=== PATIENT | female | born 1935 | race Asian ===

== ENCOUNTER 2016-05-17 05:51 | Outpatient (RCR) | payer MEDICARE ==
[~2016-05-17] VITALS: Ht 149.9 cm; Wt 45.4 kg
[2016-05-20] MEDS ORDERED: NS 550ML IV ONE ×2 (05:52→07:00)
[2016-05-20] MEDS ORDERED: Ketorolac 30mg Inj ONE ×2 (05:52→07:00)
[2016-05-20] MEDS ORDERED: Methohexital Sodium Syr 100mg/10ml IVP ONE ×2 (05:52→07:00)
[2016-05-20] MEDS ORDERED: Succinylcholine 20mg/ml 10ml vial ONE ×2 (05:52→07:00)
== END 2016-05-28 | disposition home or self-care (01) ==
LOC: ECT 05:51
DX: F33.2 Major depressive disorder, recurrent severe without psychotic features (principal)
CPT/HCPCS: 90870; J0330; J1885; J7040

== ENCOUNTER 2016-06-07 07:36 | Outpatient (RCR) | payer MEDICARE ==
[~2016-06-07] VITALS: Ht 149.9 cm; Wt 100.0 kg
[2016-06-07] MEDS ORDERED: Methohexital Sodium Syr 100mg/10ml IVP ONE (07:37)
[2016-06-07] MEDS ORDERED: Succinylcholine 20mg/ml 10ml vial ONE (07:37)
[2016-06-07] MEDS ORDERED: NS 550ML IV ONE (07:37)
[2016-06-07] MEDS ORDERED: Ketorolac 30mg Inj ONE (07:37)
== END 2016-06-25 | disposition home or self-care (01) ==
LOC: ECT 07:36
DX: F33.2 Major depressive disorder, recurrent severe without psychotic features (principal); Z88.0 Allergy status to penicillin; Z88.2 Allergy status to sulfonamides
CPT/HCPCS: 90870; J0330; J1885; J7040

== ENCOUNTER 2016-06-28 07:38 | Outpatient (RCR) | payer MEDICARE ==
[~2016-06-28] VITALS: Ht 30.5 cm; Wt 0.5 kg
[2016-06-28] MEDS ORDERED: Methohexital Sodium Syr 100mg/10ml IVP ONE ×2 (07:39)
[2016-06-28] MEDS ORDERED: Succinylcholine 20mg/ml 10ml vial ONE ×2 (07:39)
[2016-06-28] MEDS ORDERED: Ketorolac 60mg Inj ONE ×2 (07:39)
[2016-06-28] MEDS ORDERED: NS 550ML IV ONE ×2 (07:39)
== END 2016-07-26 | disposition home or self-care (01) ==
LOC: ECT 07:38
DX: F33.2 Major depressive disorder, recurrent severe without psychotic features (principal); Z88.0 Allergy status to penicillin; Z88.2 Allergy status to sulfonamides
CPT/HCPCS: 90870; J0330; J7040

== ENCOUNTER 2016-08-09 06:15 | Outpatient (RCR) | payer MEDICARE ==
[~2016-08-09] VITALS: Ht 149.9 cm; Wt 100.0 kg
[2016-08-09] MEDS ORDERED: Succinylcholine 20mg/ml 10ml vial ONE (06:16)
[2016-08-09] MEDS ORDERED: Methohexital Sodium Syr 100mg/10ml IVP ONE (06:16)
[2016-08-09] MEDS ORDERED: NS 550ML IV ONE (06:16)
[2016-08-09] MEDS ORDERED: Ketorolac 30mg Inj ONE (06:16)
== END 2016-08-25 | disposition home or self-care (01) ==
LOC: ECT 06:15
DX: F33.2 Major depressive disorder, recurrent severe without psychotic features (principal); Z88.0 Allergy status to penicillin; Z88.2 Allergy status to sulfonamides
CPT/HCPCS: 90870; J0330; J1885; J7040

== ENCOUNTER 2016-08-30 06:28 | Outpatient (RCR) | payer MEDICARE ==
[~2016-08-30] VITALS: Ht 149.9 cm; Wt 100.0 kg
[2016-08-30] MEDS ORDERED: NS 550ML IV ONE (06:29)
[2016-08-30] MEDS ORDERED: Ketorolac 30mg Inj ONE (06:29)
[2016-08-30] MEDS ORDERED: Succinylcholine 20mg/ml 10ml vial ONE (06:29)
[2016-08-30] MEDS ORDERED: Methohexital Sodium Syr 100mg/10ml IVP ONE (06:29)
== END 2016-09-25 | disposition home or self-care (01) ==
LOC: ECT 06:28
DX: F33.2 Major depressive disorder, recurrent severe without psychotic features (principal)
CPT/HCPCS: 90870; J0330; J1885; J7040

== ENCOUNTER 2016-10-02 08:41 | Outpatient (RCR) | payer MEDICARE ==
[~2016-10-02] VITALS: Ht 149.9 cm; Wt 100.0 kg
[2016-10-04] MEDS ORDERED: Succinylcholine 20mg/ml 10ml vial ONE (07:00)
[2016-10-04] MEDS ORDERED: NS 550ML IV ONE (07:00)
[2016-10-04] MEDS ORDERED: Ketorolac 30mg Inj ONE (07:00)
[2016-10-04] MEDS ORDERED: Methohexital Sodium Syr 100mg/10ml IVP ONE (07:00)
[2016-10-04] MEDS ORDERED: Atropine Sulfate 0.4mg/ml inj IVP PRN (09:23)
== END 2016-10-25 | disposition home or self-care (01) ==
LOC: ECT 08:41
DX: F33.2 Major depressive disorder, recurrent severe without psychotic features (principal)
CPT/HCPCS: 90870; J0330; J1885; J7040

== ENCOUNTER 2016-11-01 05:02 | Outpatient (RCR) | payer MEDICARE ==
[~2016-11-01] VITALS: Ht 149.9 cm; Wt 45.4 kg
[2016-11-01] MEDS ORDERED: Methohexital Sodium Syr 100mg/10ml IVP ONE (05:03)
[2016-11-01] MEDS ORDERED: NS 550ML IV ONE (05:03)
[2016-11-01] MEDS ORDERED: Succinylcholine 20mg/ml 10ml vial ONE (05:03)
[2016-11-01] MEDS ORDERED: Ketorolac 30mg Inj ONE (05:03)
== END 2016-11-25 | disposition home or self-care (01) ==
LOC: ECT 05:02
DX: F33.2 Major depressive disorder, recurrent severe without psychotic features (principal)
CPT/HCPCS: 90870; J0330; J1885; J7040

== ENCOUNTER 2016-11-27 06:07 | Outpatient (RCR) | payer MEDICARE ==
[~2016-11-27] VITALS: Ht 149.9 cm; Wt 100.0 kg
[2016-11-27] MEDS ORDERED: Methohexital Sodium Syr 100mg/10ml IVP ONE ×2 (06:08)
[2016-11-27] MEDS ORDERED: Ketorolac 60mg Inj ONE (06:08)
[2016-11-27] MEDS ORDERED: Succinylcholine 20mg/ml 10ml vial ONE ×2 (06:08)
[2016-11-27] MEDS ORDERED: Ketorolac 30mg Inj ONE (06:08)
[2016-11-27] MEDS ORDERED: NS 550ML IV ONE ×2 (06:08)
== END 2016-12-26 | disposition home or self-care (01) ==
LOC: ECT 06:07
DX: F33.2 Major depressive disorder, recurrent severe without psychotic features (principal)
CPT/HCPCS: 90870; J0330; J1885; J7040

== ENCOUNTER 2017-01-08 11:36 | Outpatient (RCR) | payer MEDICARE ==
[~2017-01-08] VITALS: Ht 33 cm; Wt 0.5 kg
[2017-01-08] MEDS ORDERED: Ketorolac 30mg Inj ONE (11:37)
[2017-01-08] MEDS ORDERED: Methohexital Sodium Syr 100mg/10ml IVP ONE (11:37)
[2017-01-08] MEDS ORDERED: NS 500ML IV ONE (11:37)
[2017-01-08] MEDS ORDERED: Succinylcholine 20mg/ml 10ml vial ONE (11:37)
[2017-01-08] MEDS ORDERED: Sodium Chloride 500ML 500 ML IV ONE (11:47)
== END 2017-01-25 | disposition home or self-care (01) ==
LOC: ECT 11:36
DX: F33.2 Major depressive disorder, recurrent severe without psychotic features (principal)
CPT/HCPCS: 90870; J0330; J1885; J7040

== ENCOUNTER 2017-01-29 06:21 | Outpatient (RCR) | payer MEDICARE ==
[~2017-01-29] VITALS: Ht 149.9 cm; Wt 100.0 kg
[2017-01-29] MEDS ORDERED: Succinylcholine 20mg/ml 10ml vial ONE (06:22)
[2017-01-29] MEDS ORDERED: Ketorolac 30mg Inj ONE (06:22)
[2017-01-29] MEDS ORDERED: Methohexital Sodium Syr 100mg/10ml IVP ONE (06:22)
[2017-01-29] MEDS ORDERED: NS 500ML IV ONE (06:22)
[2017-01-29] MEDS ORDERED: Atropine Sulfate 0.4mg/ml inj IVP PRN (10:28)
[2017-01-29] MEDS ORDERED: Sodium Chloride 500ML 500 ML IV ONE (10:28)
[2017-02-19] MEDS ORDERED: Methohexital Sodium Syr 100mg/10ml IVP ONE (07:00)
[2017-02-19] MEDS ORDERED: Succinylcholine 20mg/ml 10ml vial ONE (07:00)
[2017-02-19] MEDS ORDERED: NS 500ML IV ONE (07:00)
[2017-02-19] MEDS ORDERED: Ketorolac 30mg Inj ONE (07:00)
[2017-02-19 10:45] VITALS: BP 183/88
[2017-02-19] MEDS ORDERED: Sodium Chloride 500ML 500 ML IV ONE (10:58)
[2017-02-19 11:00] VITALS: BP 179/91
[2017-02-19 11:05] VITALS: BP 172/85
[2017-02-19 11:15] VITALS: BP 162/57
== END 2017-02-25 | disposition home or self-care (01) ==
LOC: ECT 06:21
DX: F33.2 Major depressive disorder, recurrent severe without psychotic features (principal)
CPT/HCPCS: 90870; J0330; J1885; J7040

== ENCOUNTER 2017-03-17 07:33 | Outpatient (RCR) | payer MEDICARE ==
[~2017-03-17] VITALS: Ht 30.5 cm; Wt 0.5 kg
[2017-03-17] MEDS ORDERED: Ketorolac 30mg Inj ONE (07:34)
[2017-03-17] MEDS ORDERED: Methohexital Sodium Syr 100mg/10ml IVP ONE (07:34)
[2017-03-17] MEDS ORDERED: Succinylcholine 20mg/ml 10ml vial ONE (07:34)
[2017-03-17] MEDS ORDERED: NS 500ML ONE (07:34)
[2017-03-17 09:56] VITALS: BP 173/79
[2017-03-17 10:14] VITALS: BP 187/73
[2017-03-17] MEDS ORDERED: Sodium Chloride 500ML 500 ML IV ONE (10:14)
[2017-03-17 10:19] VITALS: BP 171/70
[2017-03-17 10:24] VITALS: BP 170/75
[2017-03-17 10:29] VITALS: BP 174/69
== END 2017-03-27 | disposition home or self-care (01) ==
LOC: ECT 07:33
DX: F33.2 Major depressive disorder, recurrent severe without psychotic features (principal)
CPT/HCPCS: 90870; J0330; J1885; J7040

== ENCOUNTER 2017-04-09 07:27 | Outpatient (RCR) | payer MEDICARE ==
[~2017-04-09] VITALS: Ht 30.5 cm; Wt 0.5 kg
[2017-04-14] MEDS ORDERED: NS 500ML ONE (08:00)
[2017-04-14] MEDS ORDERED: Ketorolac 30mg Inj ONE (08:00)
[2017-04-14] MEDS ORDERED: Methohexital Sodium Syr 100mg/10ml IVP ONE (08:00)
[2017-04-14] MEDS ORDERED: Succinylcholine 20mg/ml 10ml vial ONE (08:00)
[2017-04-14] MEDS ORDERED: Sodium Chloride 500ML 500 ML IV ONE (10:27)
== END 2017-04-27 | disposition home or self-care (01) ==
LOC: ECT 07:27
DX: F33.2 Major depressive disorder, recurrent severe without psychotic features (principal)
CPT/HCPCS: 90870; J0330; J1885; J7040

== ENCOUNTER 2017-05-12 05:59 | Outpatient (RCR) | payer MEDICARE ==
[~2017-05-12] VITALS: Ht 30.5 cm; Wt 0.5 kg
[2017-05-12] MEDS ORDERED: Ketorolac 30mg Inj ONE (06:00)
[2017-05-12] MEDS ORDERED: Methohexital Sodium Syr 100mg/10ml IVP ONE (06:00)
[2017-05-12] MEDS ORDERED: Succinylcholine 20mg/ml 10ml vial ONE (06:00)
[2017-05-12] MEDS ORDERED: NS 500ML ONE (06:00)
[2017-05-19 10:04] VITALS: BP 170/78
[2017-05-19] MEDS ORDERED: Sodium Chloride 500ML 500 ML IV ONE (10:16)
[2017-05-19 10:20] VITALS: BP 181/75
[2017-05-19 10:25] VITALS: BP 175/73
[2017-05-19 10:30] VITALS: BP 172/53
[2017-05-19 10:35] VITALS: BP 173/72
[2017-05-19 10:40] VITALS: BP 159/88
== END 2017-05-28 | disposition home or self-care (01) ==
LOC: ECT 05:59
DX: F33.2 Major depressive disorder, recurrent severe without psychotic features (principal); H91.90 Unspecified hearing loss, unspecified ear; M81.0 Age-related osteoporosis without current pathological fracture; Z85.42 Personal history of malignant neoplasm of other parts of uterus; Z85.3 Personal history of malignant neoplasm of breast
CPT/HCPCS: 90870; J0330; J1885; J7040